=== PATIENT | male | born 1995 | race Hispanic/Latino ===

== ENCOUNTER 2020-09-30 18:26 | Emergency (ER) | payer OTHER ==
[2020-09-30] MEDS ORDERED: Fluorescein Opthalmic Strip ONE (19:23)
[2020-09-30] MEDS ORDERED: Proparacaine 0.5% Opth 15 ML BOT ONE (19:25)
== END 2020-09-30 21:20 ==
LOC: ERS 18:26 → EEVIPCON 18:26 → ERS 21:20
DX: S05.11XA Contusion of eyeball and orbital tissues, right eye, initial encounter (principal); Z87.891 Personal history of nicotine dependence; W22.8XXA Striking against or struck by other objects, initial encounter
CPT/HCPCS: 70486